=== PATIENT | male | born 1960 | race Two or more races ===

== ENCOUNTER 2019-04-15 16:17 | Emergency (ER) | payer OTHER ==
[~2019-04-15] VITALS: Ht 180.3 cm; Wt 83.9 kg
[~2019-04-15 16:17] MED LIST: LEVAQUIN750 MG PO
[2019-04-15] MEDS ORDERED: SIMVASTATIN10 MG PO (16:43)
[2019-04-15] MEDS ORDERED: LIPITOR20 MG PO (16:43)
== END 2019-04-15 20:50 | disposition home or self-care (01) ==
LOC: ER 16:17
DX: S60.222A Contusion of left hand, initial encounter (principal); S40.012A Contusion of left shoulder, initial encounter; S50.02XA Contusion of left elbow, initial encounter; W18.39XA Other fall on same level, initial encounter; Y93.89 Activity, other specified; Y92.69 Other specified industrial and construction area as the place of occurrence of the external cause; Y99.8 Other external cause status

== ENCOUNTER 2019-05-22 07:56 | Emergency (ER) | payer OTHER ==
[~2019-05-22] VITALS: Ht 177.8 cm; Wt 83.9 kg
[~2019-05-22 07:56] MED LIST changes: +LIPITOR20 MG PO; +SIMVASTATIN10 MG PO
[2019-05-22] MEDS ORDERED: LISINOPRIL40 MG PO (08:13)
[2019-05-22] MEDS ORDERED: PROTONIX40 MG PO (11:10)
[2019-05-22] MEDS ORDERED: DICY20TA PO (11:10)
== END 2019-05-22 11:23 | disposition home or self-care (01) ==
LOC: ER 07:56
DX: K29.60 Other gastritis without bleeding (principal)

== ENCOUNTER 2019-11-07 08:03 | Emergency (ER) | payer OTHER ==
[~2019-11-07] VITALS: Ht 177.8 cm; Wt 86.2 kg
[~2019-11-07 08:03] MED LIST changes: +DICY20TA PO; +LISINOPRIL40 MG PO; +PROTONIX40 MG PO
== END 2019-11-07 11:05 | disposition left against medical advice (07) ==
LOC: ER 08:03
DX: S70.12XS Contusion of left thigh, sequela (principal); W22.8XXS Striking against or struck by other objects, sequela

== ENCOUNTER 2021-09-29 12:45 | Outpatient (CLI) | payer OTHER | END 2021-09-29 12:50 | disposition home or self-care (01) | LOC: RAD 12:45 | PROVIDERS: ATTEND Orthopaedic Surgery | DX: M25.551 Pain in right hip (principal); M25.552 Pain in left hip ==